=== PATIENT | female | born 1950 | race Caucasian/White ===

== ENCOUNTER 2018-09-01 12:26 | Day surgery (SDC) | payer MEDICARE, OTHER, SELFPAY ==
[2018-09-01 12:39] VITALS: BP 134/84; PULSE 66; RESP 16; TEMP 36.7; O2SAT 100
[2018-09-01 12:47] VITALS: BP 134/84; PULSE 66; RESP 16; TEMP 36.7; O2SAT 100
[2018-09-01] MEDS: Lactated Ringers 1,000 ML 30 ML IV (13:00)
--- NOTE | 2018-09-01 14:09 | W.COLOREPORT ---
Date of service: 09/01/18 Time of Service: 14:09 Colonoscopy Report Date of procedure: 09/01/18 Pre-op diagnosis general: Colorectal cancer screening Post-op diagnosis procedure note: other (Normal colon to the cecum) Procedure: Colonoscopy to cecum Surgeon: Narendra Stephens Anesthesia proc note operative: MAC (Aracely Cota CRNA; ASA 2 Mallampati class II) Estimated blood loss (mL): 0 Pathology: none sent Complications: None Disposition: same day Indications: 68-year-old woman presenting for colorectal cancer screening. She has been asymptomatic since her last colonoscopy in 2007. She has a family history of colorectal cancer in paternal grandmother and grandfather. The colonoscopy procedure is been reviewed with her, and the risks discussed. All her questions been answered to her satisfaction. Consents been obtained to proceed with colonoscopy. Please Prep: Miralax/Dulcolax (Prep quality excellent) Procedure Start Time: 13:47 Procedure End Time: 14:07 Retraction Time: 10 Findings: In examining the colon from cecum to anus, no abnormalities were noted. Procedure Description: The patient was seen in the day surgery waiting area. Her identification was confirmed, and procedure checked. She was then brought to the procedure room. Monitoring for telemetry, blood pressure, oxygen saturation, and end tidal CO2 monitoring were applied. An appropriate time out was performed to confirm, identification, allergies, medication, procedure, was performed. Sedation was titrated for affect by the FACILITIES MAINTENANCE TECHNICIAN; Once adequate sedation was achieved, I performed a inspection of the external perineum, and a digitial rectal examination. No significant external abnormalities were noted. On digital rectal examination, there was no blood, no masses, good rectal tone. I advanced the colonoscope from the anus to the cecum under direct visualization. The cecum was identified by the ileal-cecal valve, and the appendiceal orifice. The scope was then withdrawn in circumferential manner from the cecum to the rectum. No abnormalites were noted in the colon. The scope was then withdrawn into the rectum, and retroflexed. No abnormalities were noted of the rectum or anorectal junction. The scope was then withdrawn, terminating the procedure. There were no complications during the procedure, and the patient tolerated the procedure well. She was returned to the day surgery recovery area in good condition. Plan: Will continue with routine screening for colorectal cancer according to current consensus guidelines, which is currently 10 years.
--- NOTE | 2018-09-01 14:16 | W.PM.DSUDISC ---
Discharge Plan Disposition Patient Disposition: HOME Condition: Good Discharge Details Reason For Visit: Colorectal cancer screening Attending Provider: Narendra Stephens Primary Care Provider: Kyra Redmond Home Meds and New Rx's Prescriptions: Continue multivitamin [Daily Multi-Vitamin] 1 EACH tablet 1 ea PO DAILY RF: 0 trazodone 50 MG tablet 50 mg PO DAILY Qty: 90 RF: 3 conjugated estrogens [Premarin] 30 GM cream 0.5 gm VG DAILY Qty: 3 RF: 3 fish,bora,flax oils-om3,6,9no1 [[place] 3-6-9 Complex] 400 MG capsule 400 mg PO DAILY RF: 0 glycine 1,000 2,000 mg PO HS RF: 0 levothyroxine 112 MCG tablet 112 mcg PO DAILY Qty: 90 RF: 3 diclofenac sodium 100 GM gel 1 applic Topical BID PRNQty: 100 RF: 3 [id number]-bdgxnkrvx-qqi C-Mn 1 EACH tablet 1 tab PO DAILY RF: 0 omeprazole 20 mg Tablet,Delayed Release (Dr/Ec) 20 mg PO PRN PRNRF: 0 Discontinued bisacodyl [Dulcolax (bisacodyl)] 5 mg tablet,delayed release (DR/EC) 5 mg PO ONCE Qty: 4 RF: 0 polyethylene glycol 3350 17 gram/dose powder 255 g PO ONCE Qty: 255 RF: 0 Discharge Instructions Instructions: Colonoscopy (DC) Activity:: Activity as Tolerated Diet:: As Tolerated Discharge Orders Discharge Orders: Discharge Order (Routine); Ordered 09/01/18 Ordered By: Narendra Stephens DS: Diagnosis Discharge Diagnosis (1) Encounter for screening colonoscopy: Status: Acute Asessment and Plan: Colonoscopy performed: Colonoscopy Report Date of procedure: 09/01/18 Pre-op diagnosis general: Colorectal cancer screening Post-op diagnosis procedure note: other (Normal colon to the cecum) Procedure: Colonoscopy to cecum Surgeon: Narendra Stephens Anesthesia proc note operative: MAC (Aracely Cota CRNA; ASA 2 Mallampati class II) Estimated blood loss (mL): 0 Pathology: none sent Complications: None Disposition: same day Indications: 68-year-old woman presenting for colorectal cancer screening. She has been asymptomatic since her last colonoscopy in 2007. She has a family history of colorectal cancer in paternal grandmother and grandfather. The colonoscopy procedure is been reviewed with her, and the risks discussed. All her questions been answered to her satisfaction. Consents been obtained to proceed with colonoscopy. Please Prep: Miralax/Dulcolax (Prep quality excellent) Procedure Start Time: 13:47 Procedure End Time: 14:07 Retraction Time: 10 Findings: In examining the colon from cecum to anus, no abnormalities were noted. Procedure Description: The patient was seen in the day surgery waiting area. Her identification was confirmed, and procedure checked. She was then brought to the procedure room. Monitoring for telemetry, blood pressure, oxygen saturation, and end tidal CO2 monitoring were applied. An appropriate time out was performed to confirm, identification, allergies, medication, procedure, was performed. Sedation was titrated for affect by the WOODWORKING SHOP LABORER; Once adequate sedation was achieved, I performed a inspection of the external perineum, and a digitial rectal examination. No significant external abnormalities were noted. On digital rectal examination, there was no blood, no masses, good rectal tone. I advanced the colonoscope from the anus to the cecum under direct visualization. The cecum was identified by the ileal-cecal valve, and the appendiceal orifice. The scope was then withdrawn in circumferential manner from the cecum to the rectum. No abnormalites were noted in the colon. The scope was then withdrawn into the rectum, and retroflexed. No abnormalities were noted of the rectum or anorectal junction. The scope was then withdrawn, terminating the procedure. There were no complications during the procedure, and the patient tolerated the procedure well. She was returned to the day surgery recovery area in good condition. Plan: Will continue with routine screening for colorectal cancer according to current consensus guidelines, which is currently 10 years.
--- NOTE | 2018-09-01 14:20 | PDOC.DSDIS_ITS ---
Discharge Plan Disposition Patient Disposition: HOME Condition: Good Discharge Details Reason For Visit: Colorectal cancer screening Attending Provider: Narendra Stephens Primary Care Provider: Kyra Redmond Home Meds and New Rx's Prescriptions: Continue multivitamin [Daily Multi-Vitamin] 1 EACH tablet 1 ea PO DAILY RF: 0 trazodone 50 MG tablet 50 mg PO DAILY Qty: 90 RF: 3 conjugated estrogens [Premarin] 30 GM cream 0.5 gm VG DAILY Qty: 3 RF: 3 fish,bora,flax oils-om3,6,9no1 [[place] 3-6-9 Complex] 400 MG capsule 400 mg PO DAILY RF: 0 glycine 1,000 2,000 mg PO HS RF: 0 levothyroxine 112 MCG tablet 112 mcg PO DAILY Qty: 90 RF: 3 diclofenac sodium 100 GM gel 1 applic Topical BID PRNQty: 100 RF: 3 [id number]-kltsfpfqd-yqn C-Mn 1 EACH tablet 1 tab PO DAILY RF: 0 omeprazole 20 mg Tablet,Delayed Release (Dr/Ec) 20 mg PO PRN PRNRF: 0 Discontinued bisacodyl [Dulcolax (bisacodyl)] 5 mg tablet,delayed release (DR/EC) 5 mg PO ONCE Qty: 4 RF: 0 polyethylene glycol 3350 17 gram/dose powder 255 g PO ONCE Qty: 255 RF: 0 Discharge Instructions Instructions: Colonoscopy (DC) Activity:: Activity as Tolerated Diet:: As Tolerated Discharge Orders Discharge Orders: Discharge Order (Routine); Ordered 09/01/18 Ordered By: Narendra Stephens DS: Diagnosis Discharge Diagnosis (1) Encounter for screening colonoscopy: Status: Acute Asessment and Plan: Colonoscopy performed: Colonoscopy Report Date of procedure: 09/01/18 Pre-op diagnosis general: Colorectal cancer screening Post-op diagnosis procedure note: other (Normal colon to the cecum) Procedure: Colonoscopy to cecum Surgeon: Narendra Stephens Anesthesia proc note operative: MAC (Aracely Cota CRNA; ASA 2 Mallampati class II) Estimated blood loss (mL): 0 Pathology: none sent Complications: None Disposition: same day Indications: 68-year-old woman presenting for colorectal cancer screening. She has been asymptomatic since her last colonoscopy in 2007. She has a family history of colorectal cancer in paternal grandmother and grandfather. The colonoscopy procedure is been reviewed with her, and the risks discussed. All her questions been answered to her satisfaction. Consents been obtained to proceed with colonoscopy. Please Prep: Miralax/Dulcolax (Prep quality excellent) Procedure Start Time: 13:47 Procedure End Time: 14:07 Retraction Time: 10 Findings: In examining the colon from cecum to anus, no abnormalities were noted. Procedure Description: The patient was seen in the day surgery waiting area. Her identification was confirmed, and procedure checked. She was then brought to the procedure room. Monitoring for telemetry, blood pressure, oxygen saturation, and end tidal CO2 monitoring were applied. An appropriate time out was performed to confirm, identification, allergies, medication, procedure, was performed. Sedation was titrated for affect by the TRADER FIXED INCOME; Once adequate sedation was achieved, I performed a inspection of the external perineum, and a digitial rectal examination. No significant external abnormalities were noted. On digital rectal examination, there was no blood, no masses, good rectal tone. I advanced the colonoscope from the anus to the cecum under direct visualization. The cecum was identified by the ileal-cecal valve, and the appendiceal orifice. The scope was then withdrawn in circumferential manner from the cecum to the rectum. No abnormalites were noted in the colon. The scope was then withdrawn into the rectum, and retroflexed. No abnormalities were noted of the rectum or anorectal junction. The scope was then withdrawn, terminating the procedure. There were no complications during the procedure, and the patient tolerated the procedure well. She was returned to the day surgery recovery area in good condition. Plan: Will continue with routine screening for colorectal cancer according to current consensus guidelines, which is currently 10 years.
[2018-09-01 14:35] VITALS: BP 136/94; PULSE 83; RESP 16; TEMP 36.9; O2SAT 99
== END 2018-09-01 15:08 | disposition home or self-care (01) ==
PROVIDERS: PCP Nurse Practitioner; Visit Provider Surgery
PROC: 0DJD8ZZ Inspection of Lower Intestinal Tract, Via Natural or Artificial Opening Endoscopic (ICD-10-PCS; CPT 45378; principal; 2018-09-01 13:30)
DX: Z12.11 Encounter for screening for malignant neoplasm of colon (principal); K21.9 Gastro-esophageal reflux disease without esophagitis
CPT/HCPCS: G0121

== ENCOUNTER 2018-09-01 16:47 | Emergency (ER) | payer MEDICARE, OTHER, SELFPAY ==
[2018-09-01 17:00] VITALS: BP 175/90; PULSE 76; RESP 16; TEMP 36.7; O2SAT 175
--- NOTE | 2018-09-01 17:04 | W.ED.GENAD ---
Discharge Plan Disposition Patient Disposition: HOME Condition: Fair Discharge Details Chief Complaint: Abd Prob Clinical Impression: Colon distention, Post-operative pain Reason For Visit: s/p colonoscopy pain Primary Care Provider: Kyra Redmond ED Provider: Carley Raya Home Meds and New Rx's Prescriptions: Continue multivitamin [Daily Multi-Vitamin] 1 EACH tablet 1 ea PO DAILY RF: 0 trazodone 50 MG tablet 50 mg PO DAILY Qty: 90 RF: 3 conjugated estrogens [Premarin] 30 GM cream 0.5 gm VG DAILY Qty: 3 RF: 3 fish,bora,flax oils-om3,6,9no1 [[place] 3-6-9 Complex] 400 MG capsule 400 mg PO DAILY RF: 0 glycine 1,000 2,000 mg PO HS RF: 0 levothyroxine 112 MCG tablet 112 mcg PO DAILY Qty: 90 RF: 3 diclofenac sodium 100 GM gel 1 applic Topical BID PRNQty: 100 RF: 3 fdofqjvcclr-mxfqajcnm-kuy C-Mn 1 EACH tablet 1 tab PO DAILY RF: 0 omeprazole 20 mg Tablet,Delayed Release (Dr/Ec) 20 mg PO PRN PRNRF: 0 Discharge Instructions Instructions: Abdominal Pain (ED) Additional Instructions: Encourage hydration. Tylenol and/or ibuprofen as needed for discomfort. Please encourage ambulation as directed by Dr. Jones. If you develop increased pain, fever/chills, vomiting, inability to stay hydrated or other new/worsening symptoms please seek care urgently once again. Please follow-up with Dr. Jones if pain is not improved over the next few days Referrals: Narendra Stephens DO [ [facility] STAFF PHYSICIAN] - Kyra Redmond NP [Primary Care Provider] - Discharge Data Discharge Date/Time-TO BE ENTERED AT DEPARTURE: 09/01/18 20:52 Medical Decision Making Patient is 68-year-old female presenting today with chief complaint of left upper quadrant abdominal pain. States the pain began a few hours ago. Patient underwent a colonoscopy this afternoon, colonoscopy was reported to be uncomplicated with no abnormalities noted. She reports that she was passing flatus while in the hospital but is not had any since being home. Has noted her abdomen to be bloated. However, a few hours after procedure, she developed moderate left upper quadrant discomfort. Patient appears uncomfortable on exam, I walk into the department she is bent forward clutching her abdomen. Abdomen is noted to be distended and tympanitic. Diminished bowel sounds. Patient has had multiple colonoscopies in the past reports she is never had discomfort like this historically. No change in urinary habits. Is not had a bowel movement since. Denies any fevers or chills. No nausea or vomiting. Has not had anything for her discomfort as of yet. Patient is declining analgesics at this time. Patient does have allergy to dye. Will obtain noncontrast CT and laboratory evaluation. I am concerned for perforation given her recent procedure as well as possible obstruction given the lack of flatus and tympanitic nature of her abdomen. Discussed this plan with the patient who is in agreement. Consult with Dr. Jones who reviewed the imaging. Advised no free air and does not appeared consistent with an obstruction. Advised likely air entrapment. Encourage mobilization of the patient. I discussed this plan with the patient to help pass flatus. However, secondary to discomfort she is not that she is able to do this at this time. He did recommend IV Tylenol and Toradol to help with discomfort which hopefully will allow the patient to mobilize in the past flatus more freely. He advised that rather than going to CT, we obtain upright x-ray. X-ray reviewed by radiologist. They note very distended colon, likely related to recent colonoscopy. No definite evidence of bowel obstruction. No free intraperitoneal air. Laboratory evaluation no significant abnormality. Have your Tylenol and Toradol, patient is feeling improved. She is ambulating by the department in a more upright fashion. He has passed a small amount of flatus while here. Encouraged hydration, she has been able to tolerate p.o. hydration while here. We discussed new/worsening symptoms and when to seek care urgently once again. I encouraged mobilization as was directed by Dr. Jones to help with a past history of flatus. Advise follow-up with Dr. Jones as needed. All of her questions and concerns were addressed and she was in agreement with this plan. [facility] General Mode of arrival: ambulatory. Date/Time Provider Initiated Documentation: 09/01/18 16:48. Limitations to Documentation: no limitations. Information obtained by: patient. History of Present Illness 68 year old F presents to the emergency department with the chief complaint of LUQ pain, described as moderate, Quality is described as other (cramping), and is localized to the abdomen. Patient reports radiation to back. Patient started experiencing this hour(s) and it has been intermittent. No relieving factors improve symptom(s), No exacerbating factors reported . Patient notes loss of appetite; denies chest pain, cough, fever/chills, nausea/vomiting, rash and shortness of breath. Patient did receive the following treatments prior to arrival, none Related Data Home Medications Medication Instructions Recorded Confirmed multivitamin [Daily Multi-Vitamin] 1 ea PO DAILY 01/25/13 09/01/18 pkmdozhzoua-dvfxnkwhx-nlp C-Mn 1 tab PO DAILY 07/27/15 09/01/18 trazodone 50 mg PO DAILY #90 tab-cap 12/09/16 09/01/18 conjugated estrogens [Premarin] 0.5 gm VG DAILY #3 tube 01/07/18 09/01/18 Glycine 2,000 mg PO HS 01/19/18 09/01/18 diclofenac sodium 1 applic TOPICAL BID PRN #100 gm 01/19/18 09/01/18 fish,bora,flax oils-om3,6,9no1 400 mg PO DAILY 01/19/18 09/01/18 [[place] 3-6-9 Complex] levothyroxine 112 mcg PO DAILY #90 tab 01/19/18 09/01/18 omeprazole 20 mg PO PRN PRN 08/30/18 09/01/18 Previous Rx's Medication Instructions Recorded conjugated estrogens [Premarin] 0.5 gm VG DAILY #3 tube 01/07/18 levothyroxine 112 mcg PO DAILY #90 tab 01/19/18 Allergies Allergy/AdvReac Type Severity Reaction Status Date / Time Penicillins Allergy Unknown rash Verified 09/01/18 17:06 Sulfa (Sulfonamide Allergy Unknown RASH Verified 09/01/18 17:06 Antibiotics) Iodinated Contrast- Oral and Allergy Unverified 09/01/18 17:08 IV Dye zolpidem tartrate AdvReac Mild Paranoia Verified 09/01/18 17:06 [From [facility]] IVP dye Allergy anaphalaxis Uncoded 09/01/18 17:06 General Stated Complaint: Abd Prob DAGOBERTO: 3 Review of Systems Constitutional Reports as per HPI, Denies chills and Denies fever(s) Cardiovascular Reports as per HPI, Denies chest pain and Denies dyspnea Respiratory Denies dyspnea Gastrointestinal Reports as per HPI Genitourinary Reports system reviewed and no additional complaints, except as docu (denies change in urinary habits) Musculoskeletal Reports as per HPI and Reports back pain Integumentary/Breasts Reports as per HPI and Denies rash PFSH Family History Mother Diabetes Essential hypertension Father No problems noted. Appendectomy section EGD w/ bx (01/03/16) Tonsillectomy and adenoidectomy wisdom tooth extraction Family History Mother Diabetes Essential hypertension Father No problems noted. Social History Smoking/Tobacco Use Status: Never alcohol intake: current alcohol intake frequency: 0-2 drinks per day Alcohol type: beer and hard liquor substance use type: does not use Surgical History Appendectomy section EGD w/ bx (01/03/16) Tonsillectomy and adenoidectomy wisdom tooth extraction Social History Smoking/Tobacco Use Status: Never alcohol intake: current alcohol intake frequency: 0-2 drinks per day Alcohol type: beer and hard liquor substance use type: does not use Exam Const General: cooperative, healthy appearing, comfortable, no acute distress and well developed Nutritional Appearance: average body habitus and well nourished Orientation: alert and awake HENNV Head: normal to inspection Mouth: moist mucous membranes Resp Effort & Inspection: normal respiratory effort, able to speak in complete sentences and no respiratory distress Auscultation: clear to auscultation bilaterally, no rales, no rhonchi and no wheezes Cardio Rate: regular rate Rhythm: regular rhythm Heart Sounds: S1 normal and S2 normal GI Inspection: no abdominal wall ecchymosis, distended and no visible herniation Palpation: soft, no hepatosplenomegaly, no guarding, no hepatosplenomegaly, no pulsatile masses, not rigid and tender in the LUQ; Varma's sign negative and with no rebound tenderness Percussion: tympanic to percussion Auscultation: hypoactive bowel sounds Back/Spine/Pelvis Back: no CVA tenderness Skin General skin exam: no rashes or lesions noted Trauma: no lacerations or abrasions Neuro General: alert and awake Cognition: normal cognition Speech: speech normal Gait: gait abnormal (patient ambulating in a bent over position, holding upper abdomen) Psych Appearance: grossly normal and well kempt Mental Status: mental status grossly normal Speech and Movement: speech and movement normal Course Vital Signs Temperature 36.7 C 09/01/18 17:00 Pulse 76 09/01/18 17:00 Respiratory Rate 16 09/01/18 17:00 Blood Pressure 175/90 H 09/01/18 17:00 Pulse Oximetry 175 H 09/01/18 17:00 Temperature 36.7 C 09/01/18 17:00 Temperature Source Temporal Artery Scan 09/01/18 17:00 Pulse 76 09/01/18 17:00 Respiratory Rate 16 09/01/18 17:00 Blood Pressure 175/90 H 09/01/18 17:00 Pulse Oximetry 175 H 09/01/18 17:00 Oxygen Delivery Method Room Air 09/01/18 17:00 Oxygen Flow Rate 0 09/01/18 17:00 Pain Level 4 09/01/18 17:00
--- NOTE | 2018-09-01 17:11 | ED.GENADUL_ITS ---
Discharge Plan Disposition Patient Disposition: HOME Condition: Fair Discharge Details Chief Complaint: Abd Prob Clinical Impression: Colon distention, Post-operative pain Reason For Visit: s/p colonoscopy pain Primary Care Provider: Kyra Redmond ED Provider: Carley Raya Home Meds and New Rx's Prescriptions: Continue multivitamin [Daily Multi-Vitamin] 1 EACH tablet 1 ea PO DAILY RF: 0 trazodone 50 MG tablet 50 mg PO DAILY Qty: 90 RF: 3 conjugated estrogens [Premarin] 30 GM cream 0.5 gm VG DAILY Qty: 3 RF: 3 fish,bora,flax oils-om3,6,9no1 [Seneca 3-6-9 Complex] 400 MG capsule 400 mg PO DAILY RF: 0 glycine 1,000 2,000 mg PO HS RF: 0 levothyroxine 112 MCG tablet 112 mcg PO DAILY Qty: 90 RF: 3 diclofenac sodium 100 GM gel 1 applic Topical BID PRNQty: 100 RF: 3 rwknpjclhlk-szqzpqhcm-pyi C-Mn 1 EACH tablet 1 tab PO DAILY RF: 0 omeprazole 20 mg Tablet,Delayed Release (Dr/Ec) 20 mg PO PRN PRNRF: 0 Discharge Instructions Instructions: Abdominal Pain (ED) Additional Instructions: Encourage hydration. Tylenol and/or ibuprofen as needed for discomfort. Please encourage ambulation as directed by Dr. Jones. If you develop increased pain, fever/chills, vomiting, inability to stay hydrated or other new/worsening symptoms please seek care urgently once again. Please follow-up with Dr. Jones if pain is not improved over the next few days Referrals: Narendra Stephens DO [ [facility] STAFF PHYSICIAN] - Kyra Redmond NP [Primary Care Provider] - Discharge Data Discharge Date/Time-TO BE ENTERED AT DEPARTURE: 09/01/18 20:52 Medical Decision Making Patient is 68-year-old female presenting today with chief complaint of left upper quadrant abdominal pain. States the pain began a few hours ago. Patient underwent a colonoscopy this afternoon, colonoscopy was reported to be uncomplicated with no abnormalities noted. She reports that she was passing flatus while in the hospital but is not had any since being home. Has noted her abdomen to be bloated. However, a few hours after procedure, she developed moderate left upper quadrant discomfort. Patient appears uncomfortable on exam , I walk into the department she is bent forward clutching her abdomen. Abdomen is noted to be distended and tympanitic. Diminished bowel sounds. Patient has had multiple colonoscopies in the past reports she is never had discomfort like this historically. No change in urinary habits. Is not had a bowel movement since. Denies any fevers or chills. No nausea or vomiting. Has not had anything for her discomfort as of yet. Patient is declining analgesics at this time. Patient does have allergy to dye. Will obtain noncontrast CT and laboratory evaluation. I am concerned for perforation given her recent procedure as well as possible obstruction given the lack of flatus and tympanitic nature of her abdomen. Discussed this plan with the patient who is in agreement. Consult with Dr. Jones who reviewed the imaging. Advised no free air and does not appeared consistent with an obstruction. Advised likely air entrapment. Encourage mobilization of the patient. I discussed this plan with the patient to help pass flatus. However, secondary to discomfort she is not that she is able to do this at this time. He did recommend IV Tylenol and Toradol to help with discomfort which hopefully will allow the patient to mobilize in the past flatus more freely. He advised that rather than going to CT, we obtain upright x-ray. X-ray reviewed by radiologist. They note very distended colon, likely related to recent colonoscopy. No definite evidence of bowel obstruction. No free intraperitoneal air. Laboratory evaluation no significant abnormality. Have your Tylenol and Toradol, patient is feeling improved. She is ambulating by the department in a more upright fashion. He has passed a small amount of flatus while here. Encouraged hydration, she has been able to tolerate p.o. hydration while here. We discussed new/worsening symptoms and when to seek care urgently once again. I encouraged mobilization as was directed by Dr. Jones to help with a past history of flatus. Advise follow-up with Dr. Jones as needed. All of her questions and concerns were addressed and she was in agreement with this plan. [facility] General Mode of arrival: ambulatory . Date/Time Provider Initiated Documentation: 09/01/18 16:48 . Limitations to Documentation: no limitations . Information obtained by: patient . History of Present Illness 68 year old F presents to the emergency department with the chief complaint of LUQ pain, described as moderate, Quality is described as other (cramping), and is localized to the abdomen. Patient reports radiation to back. Patient started experiencing this hour(s) and it has been intermittent. No relieving factors improve symptom(s), No exacerbating factors reported . Patient notes loss of appetite; denies chest pain, cough, fever/chills, nausea/ vomiting, rash and shortness of breath. Patient did receive the following treatments prior to arrival, none Related Data Home Medications Medication Instructions Recorded Confirmed multivitamin [Daily Multi-Vitamin] 1 ea PO DAILY 01/25/13 09/01/18 icdxvbksnce-hcerfvnss-fvi C-Mn 1 tab PO DAILY 07/27/15 09/01/18 trazodone 50 mg PO DAILY #90 tab-cap 12/09/16 09/01/18 conjugated estrogens [Premarin] 0.5 gm VG DAILY #3 tube 01/07/18 09/01/18 Glycine 2,000 mg PO HS 01/19/18 09/01/18 diclofenac sodium 1 applic TOPICAL BID PRN #100 gm 01/19/18 09/01/18 fish,bora,flax oils-om3,6,9no1 400 mg PO DAILY 01/19/18 09/01/18 [Seneca 3-6-9 Complex] levothyroxine 112 mcg PO DAILY #90 tab 01/19/18 09/01/18 omeprazole 20 mg PO PRN PRN 08/30/18 09/01/18 Previous Rx's Medication Instructions Recorded conjugated estrogens [Premarin] 0.5 gm VG DAILY #3 tube 01/07/18 levothyroxine 112 mcg PO DAILY #90 tab 01/19/18 Allergies Allergy/AdvReac Type Severity Reaction Status Date / Time Penicillins Allergy Unknown rash Verified 09/01/18 17:06 Sulfa (Sulfonamide Allergy Unknown RASH Verified 09/01/18 17:06 Antibiotics) Iodinated Contrast- Oral and Allergy Unverified 09/01/18 17:08 IV Dye zolpidem tartrate AdvReac Mild Paranoia Verified 09/01/18 17:06 [From [facility]] IVP dye Allergy anaphalaxis Uncoded 09/01/18 17:06 General Stated Complaint: Abd Prob DAGOBERTO: 3 Review of Systems Constitutional Reports as per HPI, Denies chills and Denies fever(s) Cardiovascular Reports as per HPI, Denies chest pain and Denies dyspnea Respiratory Denies dyspnea Gastrointestinal Reports as per HPI Genitourinary Reports system reviewed and no additional complaints, except as docu (denies change in urinary habits) Musculoskeletal Reports as per HPI and Reports back pain Integumentary/Breasts Reports as per HPI and Denies rash PFSH Family History Mother Diabetes Essential hypertension Father No problems noted. Appendectomy section EGD w/ bx (01/03/16) Tonsillectomy and adenoidectomy wisdom tooth extraction Family History Mother Diabetes Essential hypertension Father No problems noted. Social History Smoking/Tobacco Use Status: Never alcohol intake: current alcohol intake frequency: 0-2 drinks per day Alcohol type: beer and hard liquor substance use type: does not use Surgical History Appendectomy section EGD w/ bx (01/03/16) Tonsillectomy and adenoidectomy wisdom tooth extraction Social History Smoking/Tobacco Use Status: Never alcohol intake: current alcohol intake frequency: 0-2 drinks per day Alcohol type: beer and hard liquor substance use type: does not use Exam Const General: cooperative, healthy appearing, comfortable, no acute distress and well developed Nutritional Appearance: average body habitus and well nourished Orientation: alert and awake HENNM Head: normal to inspection Mouth: moist mucous membranes Resp Effort & Inspection: normal respiratory effort, able to speak in complete sentences and no respiratory distress Auscultation: clear to auscultation bilaterally, no rales, no rhonchi and no wheezes Cardio Rate: regular rate Rhythm: regular rhythm Heart Sounds: S1 normal and S2 normal GI Inspection: no abdominal wall ecchymosis, distended and no visible herniation Palpation: soft, no hepatosplenomegaly, no guarding, no hepatosplenomegaly, no pulsatile masses, not rigid and tender in the LUQ; Varma's sign negative and with no rebound tenderness Percussion: tympanic to percussion Auscultation: hypoactive bowel sounds Back/Spine/Pelvis Back: no CVA tenderness Skin General skin exam: no rashes or lesions noted Trauma: no lacerations or abrasions Neuro General: alert and awake Cognition: normal cognition Speech: speech normal Gait: gait abnormal (patient ambulating in a bent over position, holding upper abdomen) Psych Appearance: grossly normal and well kempt Mental Status: mental status grossly normal Speech and Movement: speech and movement normal Course Vital Signs Temperature 36.7 C 09/01/18 17:00 Pulse 76 09/01/18 17:00 Respiratory Rate 16 09/01/18 17:00 Blood Pressure 175/90 H 09/01/18 17:00 Pulse Oximetry 175 H 09/01/18 17:00 Temperature 36.7 C 09/01/18 17:00 Temperature Source Temporal Artery Scan 09/01/18 17:00 Pulse 76 09/01/18 17:00 Respiratory Rate 16 09/01/18 17:00 Blood Pressure 175/90 H 09/01/18 17:00 Pulse Oximetry 175 H 09/01/18 17:00 Oxygen Delivery Method Room Air 09/01/18 17:00 Oxygen Flow Rate 0 09/01/18 17:00 Pain Level 4 09/01/18 17:00
[2018-09-01] MEDS: Lactated Ringers 1,000 ML 125 ML IV (17:15)
--- NOTE | 2018-09-01 17:19 | DI.RAD_ITS ---
SYMPTOM/DIAGNOSIS: ABDOMINAL PAIN AFTER COLONOSCOPY FLAT AND UPRIGHT VIEWS OF ABDOMEN: The visualized portions of the lung bases are clear. No free air is seen beneath the diaphragm. The colon is distended with air related to recent colonoscopy. The amount of colonic distension could obscure smaller air bubbles. Degenerative changes are seen in the spine. There is no evidence of organomegaly. IMPRESSION: Colonic distension related to recent colonoscopy. No gross evidence of perforation.
[2018-09-01 17:20] LABS: Absolute Basophil Count 0.04 k/cumm (0.0-0.2); Absolute Eosinophil Count 0.13 k/cumm (0.0-0.7); Absolute Lymphocyte Count 1.47 k/cumm (1.2-3.4); Absolute Monocyte Count 0.53 k/cumm (0.11-0.7); Absolute Neutrophil Count 3.37 k/cumm (1.2-6.7); Basophils % 0.7; Eosinophils % 2.3; HCT 42.6 % (36.0-46.0); HGB 14.5 g/dL (12.0-15.5); Lymphocytes % 26.5; Mean Corpuscular Hemoglobin 29.5 pg (27.0-33.0); Mean Corpuscular Volume 86.6 fL (80-95); Mean Platelet Volume 8.9 fL (8.0-11.0); Monocytes % 9.6; Neutrophils % 60.9; Platelet Count 264 x1000/uL (130-400); RBC 4.92 m/cumm (4.00-5.20); White Blood Cell Count 5.54 k/cumm (4.4-10.8)
[2018-09-01 17:29] LABS: Bilirubin Negative (Negative); Blood Negative (Negative); Clarity Clear; Glucose Negative (Negative); Ketones Negative (Negative); Leukocyte Esterase Negative (Negative); Nitrite Negative (Negative); Specific Gravity 1.015 (1.005-1.025); Urobilinogen 0.2 EU/dL (Up TO 0.2); pH 6.5 (5-8)
[2018-09-01 17:43] LABS: ALT 29 U/L (12-78); AST 16 U/L (15-37); Albumin 3.7 g/dL (3.4-5.0); Alkaline Phosphatase 73 U/L (46-116); Anion Gap 5.8 mmol/L (3-11); BUN 10 mg/dL (7-18); Bilirubin, Total 0.6 mg/dL (0.2-1.0); CO2 30.2 mmol/L (21.0-32.0); Calcium 9.1 mg/dL (8.5-10.1); Chloride 104 mmol/L (98-107); Glucose 102 mg/dL (70-100); Lipase 123 U/L (73-393); Magnesium 1.7 mg/dL (1.8-2.4); Potassium 3.6 mmol/L (3.5-5.1); Sodium 140 mmol/L (136-145); Total Protein 6.6 g/dL (6.4-8.2); Troponin I < 0.02 ng/mL (0.00-0.06)
--- NOTE | 2018-09-01 18:02 | DI.VRAD_ITS ---
EXAM: XR Abdomen, 2 Views EXAM DATE/TIME: 09/01/2018 5:20 PM CLINICAL HISTORY: 68 years old, female; Pain; Abdominal pain; Localized; Left upper quadrant (luq); Patient HX: Abdominal pain luq after colonoscopy. TECHNIQUE: Frontal view of the abdomen/pelvis with upright view of the abdomen. COMPARISON: No relevant prior studies available. FINDINGS: Gastrointestinal tract: Air distended colon, likely related to recent colonoscopy. No definite evidence for bowel obstruction. Intraperitoneal space: No free intraperitoneal air. Bones/joints: Unremarkable for age. IMPRESSION: 1. Air distended colon, likely related to recent colonoscopy. No definite evidence for bowel obstruction. 2. No free intraperitoneal air. Dictated and Authenticated by: Diego Cabrera MD. Ordering:DANIELLA HOYOS MD
[2018-09-01] MEDS: Ketorolac 15 MG/ML VIAL IVP (18:45)
[2018-09-01] MEDS: ACETAMINOPHEN 1,000 MG/100 ML BTL 400 MG IVPB (18:50)
== END 2018-09-01 20:52 | disposition home or self-care (01) ==
LOC: ER 20:50
PROVIDERS: Emergency Provider Physician Assistant; PCP Nurse Practitioner
DX: K63.89 Other specified diseases of intestine (principal); R10.12 Left upper quadrant pain; G89.18 Other acute postprocedural pain; Y84.8 Other medical procedures as the cause of abnormal reaction of the patient, or of later complication, without mention of misadventure at the time of the procedure; Z12.11 Encounter for screening for malignant neoplasm of colon; K21.9 Gastro-esophageal reflux disease without esophagitis
CPT/HCPCS: 36415; 80053; 83690; 96365; 96375; 99284; G0121; 74019; 81003; 83735; 84484; 85025; J0131; J1885

== ENCOUNTER 2018-12-07 18:52 | Outpatient (REF) | payer MEDICARE, OTHER, SELFPAY | END 2018-12-07 19:12 | LOC: LBN 18:52 | PROVIDERS: PCP Nurse Practitioner; Visit Provider Nurse Practitioner | DX: R30.0 Dysuria (principal) | CPT/HCPCS: 87077; 87086; 87186 ==

== ENCOUNTER 2019-03-01 13:33 | Outpatient (CLI) | payer MEDICARE, OTHER, SELFPAY ==
[2019-03-01 15:51] LABS: TSH (W/Ref FT4) 0.95 uIU/mL (0.358-3.74)
== END 2019-03-01 13:53 ==
PROVIDERS: PCP Nurse Practitioner; Visit Provider Nurse Practitioner
DX: E03.9 Hypothyroidism, unspecified (principal)
CPT/HCPCS: 36415; 84443

== ENCOUNTER 2019-11-28 09:51 | Outpatient (CLI) | payer OTHER, SELFPAY ==
[2019-11-28 10:21] LABS: HCT 44.8 % (36.0-46.0); HGB 15.1 g/dL (12.0-15.5); Mean Corp. HGB Concentration 33.7 g/dL (32.0-36.0); Mean Corpuscular Hemoglobin 29.2 pg (27.0-33.0); Mean Corpuscular Volume 86.5 fL (80-95); Mean Platelet Volume 9.1 fL (8.0-11.0); Platelet Count 323 x1000/uL (130-400); RBC 5.18 m/cumm (4.00-5.20); White Blood Cell Count 4.62 k/cumm (4.4-10.8)
[2019-11-28 11:41] LABS: ALT 26 U/L (14-59); AST 16 U/L (15-37); Albumin 4.1 g/dL (3.4-5.0); Alkaline Phosphatase 82 U/L (46-116); Anion Gap 7.8 mmol/L (3-11); BUN 12 mg/dL (7-18); Bilirubin, Total 0.4 mg/dL (0.2-1.0); CO2 31.2 mmol/L (21.0-32.0); CREATININE 0.83 mg/dL (0.55-1.02); Calcium 9.4 mg/dL (8.5-10.1); Chloride 104 mmol/L (98-107); Glucose 106 mg/dL (74-106); Potassium 4.6 mmol/L (3.5-5.1); Sodium 143 mmol/L (136-145); TSH (W/Ref FT4) 1.11 uIU/mL (0.36-3.74); Total Protein 6.9 g/dL (6.4-8.2); Vitamin B12 823 pg/mL (193-986)
[2019-11-29 11:50] LABS: Syphilis Serology (RPR) Negative (Negative)
== END 2019-11-28 10:11 ==
PROVIDERS: PCP Nurse Practitioner; Visit Provider Nurse Practitioner
DX: I10 Essential (primary) hypertension (principal); R07.9 Chest pain, unspecified; E03.9 Hypothyroidism, unspecified; F51.01 Primary insomnia; R47.89 Other speech disturbances
CPT/HCPCS: 36415; 80053; 85027; 82607; 84443; 86592

== ENCOUNTER 2019-12-09 02:12 | Outpatient (CLI) | payer OTHER, SELFPAY ==
--- NOTE | 2019-12-09 07:46 | DI.MRI_ITS ---
EXAM: MR BRAIN WO CLINICAL HISTORY: word finding difficulty, poor memory,r47.89,r41.3 TECHNIQUE: Multiplanar multisequence MRI of the brain was performed. COMPARISON: No exams were available for comparison FINDINGS: VENTRICLES AND EXTRA AXIAL SPACES: Normal in size and morphology for the patient's age. MIDLINE SHIFT: None. CEREBRAL PARENCHYMA: No focus of restricted diffusion to suggest acute infarct. No space-occupying le cristiane identified. HEMORRHAGE: None. BRAINSTEM/CEREBELLUM: Normal. CALVARIUM: Normal. VISUALIZED PARANASAL SINUSES/MASTOIDS:Clear. [place]: Normal flow void. PITUITARY GLAND: Unremarkable. OTHER FINDINGS: None. IMPRESSION: Unremarkable MRI of the brain. DATA REPOSITORY:
== END 2019-12-09 02:32 ==
PROVIDERS: PCP Nurse Practitioner; Visit Provider Nurse Practitioner
DX: R47.89 Other speech disturbances (principal); R41.3 Other amnesia
CPT/HCPCS: 70551

== ENCOUNTER 2020-08-03 03:13 | Outpatient (CLI) | payer OTHER, SELFPAY ==
[2020-08-07 19:04] LABS: Patient Race White; SARS-CoV-2 RNA Undetected (Undetected); SARS-CoV-2 Specimen Source Nasal
== END 2020-08-03 03:33 ==
PROVIDERS: PCP Nurse Practitioner; Visit Provider Nurse Practitioner Family
DX: Z11.59 Encounter for screening for other viral diseases (principal)
CPT/HCPCS: U0003

== ENCOUNTER 2021-02-04 03:19 | Outpatient (CLI) | payer OTHER, SELFPAY ==
--- NOTE | 2021-02-04 07:00 | DI.MAMMO_ITS ---
Exam(s) MAMMO SCREENING EXAM: MAMMO SCREENING CLINICAL HISTORY: screening,Z12.39. TECHNIQUE: Bilateral full field digital CC and MLO mammographic images were obtained with 3D tomosyn thesis and utilizing computer aided detection (CAD). COMPARISON: Prior mammograms dating back to 2012, the most recent being July 2017. FINDINGS: There are no CAD designations. There are no new spiculated masses nor malignant appearing microcalcification groups. There is no significant architectural distortion nor skin thickening-retraction. IMPRESSION: No radiographic evidence of malignancy. BI-RADS Category 1 - Negative Breast Density - Category B - Scattered areas of fibroglandular density Breast density Category C or D implies that the patient has dense breast tissue. Dense breast tissue can make it harder to find cancer on a mammogram. Dense breast tissue is also associated with an incr eased risk of breast cancer. This information about the result of the mammogram report was provided to the patient to raise their awareness. Use this report when you speak with the patient about their risks for breast cancer, which includes their family history. At that time, you may recommend additional screening tests (Ultrasoun d or MRI) as these tests may add significant information. A negative radiographic report should not delay biopsy if a dominant or clinically suspicious mass is present. Up to ten percent of cancers are not identified on mammography. A negative report may reinforce clinical impression. Adenosis and dense breasts may obscure an underlying neoplasm. False positive reports average 6 to 10%. Patient will receive a letter notifying them of these results.
[2021-02-04 08:28] LABS: HCT 41.3 % (36.0-46.0); HGB 13.7 g/dL (11.2-15.7); MCH 29.7 pg (27.0-33.0); MCHC 33.2 % (32.0-36.0); MCV 89.4 fL (80-95); MPV 8.7 fL (8.0-11.0); Platelet Count 261 10^3/uL (130-400); RBC 4.62 10^6/uL (3.93-5.22); RDW-SD 42.8 fL; WBC 4.74 10^3/uL (4.4-10.8)
[2021-02-04 09:25] LABS: ALT 27 U/L (14-59); AST 15 U/L (15-37); Albumin 3.8 g/dL (3.4-5.0); Alkaline Phosphatase 81 U/L (46-116); Anion Gap 8.1 mmol/L (3-11); BUN 16 mg/dL (7-18); Bilirubin, Total 0.7 mg/dL (0.2-1.0); CO2 28.9 mmol/L (21.0-32.0); CREATININE 0.9 mg/dL (0.55-1.02); Calculated LDL 106 mg/dL (<100); Chloride 106 mmol/L (98-107); Cholesterol 196 mg/dL (<200); Glucose 107 mg/dL (74-106); HDL Cholesterol 79 mg/dL (40-60); Potassium 4.3 mmol/L (3.5-5.1); Sodium 143 mmol/L (136-145); TSH (W/Ref FT4) 0.46 uIU/mL (0.36-3.74); Total Protein 6.5 g/dL (6.4-8.2); Triglyceride 59 mg/dL (<150)
== END 2021-02-04 03:20 | disposition home or self-care (01) ==
LOC: LBO 03:20
PROVIDERS: PCP Nurse Practitioner; Visit Provider Nurse Practitioner
DX: Z12.31 Encounter for screening mammogram for malignant neoplasm of breast (principal); E03.9 Hypothyroidism, unspecified; I10 Essential (primary) hypertension
CPT/HCPCS: 36415; 77063; 77067; 80053; 80061; 85027; 84443

== ENCOUNTER 2021-04-17 03:07 | Outpatient (CLI) | payer OTHER, MEDICARE, SELFPAY ==
[2021-04-17 11:53] LABS: TSH (W/Ref FT4) 0.54 uIU/mL (0.36-3.74); Vitamin B12 821 pg/mL (193-986)
[2021-04-18 05:32] LABS: Vitamin D 25 Total 48.8 ng/mL (30-100)
[2021-04-18 10:20] LABS: Lyme Ab w Rflx to Lyme Confirm Negative (Negative)
[2021-04-19 17:38] LABS: Anaplasma phagocytophilum Negative (Negative); B. miyamotoi PCR Negative (Negative); Babesia divergens/MO-1 Negative (Negative); Babesia duncani Negative (Negative); Babesia microti Negative (Negative); Ehrlichia chaffeensis Negative (Negative); Ehrlichia ewingii/canis Negative (Negative); Ehrlichia muris eauclairensis Negative (Negative)
== END 2021-04-17 03:08 | disposition home or self-care (01) ==
LOC: LBO 03:07
PROVIDERS: PCP Nurse Practitioner; Visit Provider Nurse Practitioner
DX: I10 Essential (primary) hypertension (principal); R47.1 Dysarthria and anarthria; R47.89 Other speech disturbances; R26.89 Other abnormalities of gait and mobility; E03.9 Hypothyroidism, unspecified; E55.9 Vitamin D deficiency, unspecified; G25.0 Essential tremor
CPT/HCPCS: 36415; 82306; 87798; 82607; 84443; 86618

== ENCOUNTER 2022-01-30 22:07 | Outpatient (REF) | payer MEDICARE, SELFPAY ==
[2022-01-30 22:30] LABS: Lab Add On Test DONE
== END 2022-01-30 22:08 | disposition home or self-care (01) ==
LOC: LBN 22:07
PROVIDERS: PCP Student in an Organized Health Care Education/Training Program; Visit Provider Student in an Organized Health Care Education/Training Program
DX: R19.7 Diarrhea, unspecified (principal)
CPT/HCPCS: 87329; 87177

== ENCOUNTER 2022-03-10 03:12 | Outpatient (CLI) | payer MEDICARE, SELFPAY ==
[2022-03-10 12:30] LABS: Source Nasal/Nares
[2022-03-10 16:19] LABS: COVID-19 PCR Negative (Negative)
== END 2022-03-10 03:13 | disposition home or self-care (01) ==
PROVIDERS: PCP Student in an Organized Health Care Education/Training Program; Visit Provider Speech-Language Pathologist
DX: Z20.822 Contact with and (suspected) exposure to COVID-19 (principal); Z01.818 Encounter for other preprocedural examination
CPT/HCPCS: 87635; U0005

== ENCOUNTER → 2022-03-11 01:47 | Outpatient (CLI) | payer MEDICARE, SELFPAY ==
--- NOTE | 2022-03-11 10:30 | ST.MBS ---
Date of Service Date of service: 03/11/22 Time of Service: 10:52 Modified Barium Swallow Study Findings: Videofluoroscopic Swallowing Evaluation / Modified Barium Swallow Study (VFSE/MBSS) Speech Language Pathology Report ? Patient referred by Andra Wise MD for VFSE/MBSS given patient complaint of coughing and food sticking. SUBJECTIVE: Shania arrived on time for today's swallow study. She reports no interim updates regarding her swallowing but feels her speech has been getting worse since our last visit several weeks ago. She also shares that her neurology visit with [facility] for second opinion regarding her speech and motor symptoms is upcoming (next week). She asks if the report from today's session may be shared with them. OBJECTIVE: Videofluoroscopic Swallow Evaluation (VFSE/MBSS) was conducted in the lateral projection by Speech-Language Pathologist, in collaboration with Radiologist, to evaluate oropharyngeal swallow function. Anatomic view under fluoroscopy: WFL ? PO barium contrast trials: Oral barium water soluble contrast was administered as follows: IDDSI Level 0 Varibar thin liquid (40% w/v) IDDSI Level 2 Varibar nectar thick/mildly thick liquid (40% w/v) IDDSI Level 4 Varibar pudding/pureed/extremely thick (40% w/v) IDDSI Level 7 Regular Solid: 1/2 trish cracker coated in 3 mL Varibar pudding; 13 mm barium tablet ? PHYSIOLOGIC FINDINGS Oral Phase 1 Lip Closure: 0-No labial escape 2 Tongue Control: 0- Cohesive bolus between tongue to palatal seal 3 Bolus Preparation/Mastication: 0- Timely and efficient chewing/mashing 4 Bolus Transport/Lingual Motion: 2- Slowed tongue motion; 2 or less AP movements 5 Oral residue: 1- Trace residue lining oral structures Location: tongue 6 Initiation of pharyngeal swallow:? 2- Bolus head at posterior laryngeal surface of epiglottis vs. 3- Bolus head in pyriform sinus Pharyngeal Phase 7 Velar Elevation: 0- No bolus between soft palate and pharyngeal wall 8 Laryngeal Elevation:? 1- Partial superior movement of thyroid cartilage with partial approximation of arytenoids to epiglottic petiole 9 Anterior Hyoid Excursion: 0- Complete anterior movement 10 Epiglottic Movement:? 0- Complete inversion (though delayed) 11 Laryngeal Vestibule Closure: 1- Incomplete; narrow column of air/contrast in laryngeal vestibule Penetration occurs prior to swallow onset, penetration of current bolus (not stasis/residue) 12 Pharyngeal Stripping Wave:? 1- Present; diminished 13 Pharyngeal Contraction: DNT; lack of AP view 14 PES/UES Opening:? 0- Complete distension and complete duration; no obstruction of flow 15 Tongue Base Retraction: 0- No contrast between tongue base and posterior pharyngeal wall 16 Pharyngeal residue:? 1- Trace residue within or on pharyngeal structures Location: Valleculae, Pyriform sinuses [place] Pharyngeal Residue Severity Rating Scale (YPRS) (Rosie et al, 2015) Vallecula Residue Severity II Trace 1-5% Trace coating of the mucosa Pyriform Sinus Residue Severity II Trace 1-5% Trace coating of the mucosa Esophageal Phase 17 Esophageal Clearance Upright Position: DNT; lack of AP view - HOWEVER, noting some mild retention in lateral view across consistencies in proximal segment of esophagus, question impact of ?osteophytes vs ?hypertone. NOTE: This study was performed for interpretation only of the oropharyngeal and pharyngoesophageal domains of swallowing. It is not intended to diagnose any other radiologic abnormalities or substitute for a formal esophagram study. ? Overall 8-Point Penetration-Aspiration Scale (PAS) (Jessicak, et al, 1996) 1 - No material enters the airway. 2 - Material enters the airway, remains above the vocal folds, and is ejected? from the airway. 3 - Material enters the airway, remains above the vocal folds, and is not? ejected from the airway. 4 - Material enters the airway, contacts the vocal folds, and is ejected from the? airway. 5 - Material enters the airway, contacts the vocal folds, and is not ejected from? the airway. 6 - Material enters the airway, passes below the vocal folds, and is ejected into? the larynx or out of the airway. 7 - Material enters the airway, passes below the vocal folds, and is not ejected? from the trachea despite effort. 8 - Material enters the airway, passes below the vocal folds, and no effort is? made to eject. ? Clinical Indicator(s) of Prandial/Postprandial Aspiration: Throat Clear (inconsistent, with penetration) - Aspiration not observed ? Trialed Compensatory Swallow Strategies & Outcome: Postures Posterior Head tilt - (successful per pt report for A/P transport) Maneuvers 3-second Preparatory Set - unsuccessful Volitional Throat Clear - successful Bolus Modifications Increased Viscosity - successful ? Dysphagia Outcome and Severity Scale (IRINA) LEVEL 7 - Full PO: normal diet - Normal in all situations LEVEL 6 - Full PO: normal diet - Within functional limits/modified independence LEVEL 5 - Full PO: modified diet and/or independence - Mild dysphagia; Distant supervision, may need 1 diet consistency restricted LEVEL 4 - Full PO: modified diet and/or independence - Mild-moderate dysphagia; Intermittent supervision/cueing, 1 or 2 consistencies restricted LEVEL 3 - Full PO: modified diet and/or independence - Moderate dysphagia; Total assist, supervision, or strategies 2 or more diet consistencies restricted LEVEL 2 - Nonoral nutrition necessary - Moderate-severe dysphagia; Maximum assistance or use of strategies with partial PO only (tolerates at least 1 consistency safely with total use of strategies) LEVEL 1 - Nonoral nutrition necessary - Severe dysphagia; NPO, unable to tolerate any PO safely ? IMPRESSIONS: Mild oral, pharyngeal, esophageal dysphagia, likely chronic; characterized primarily by penetration of thin liquids in setting of delayed/slowed A/P tongue movement and delayed pharyngeal swallow onset. Of note there is no apparent weakness or reduced ROM of structures. Penetration sx not to be improved by reduced volume of bolus, and 3 second bolus hold/preparatory set (?reduced automaticity) appears to worsen swallow function. Dysphagia presentation likely due to ?degenerative motor condition vs presbyphagia. Swallow safety is mildly impaired; swallow efficiency is mildly impaired. Patient appears to be at low risk for potential aspiration PNA, pulmonary compromise and low risk for malnutrition, low risk for dehydration. Diet modification is indicated only to reduce bolus size and reduce risk of stasis. Swallow prognosis is guarded given possible suspected neuro-degenerative causes, though patient is an excellent candidate for risk management training. Plan to follow up with patient periodically on swallow function (patient is an established patient for speech therapy secondary to Primary Progressive Apraxia of Speech dx'd by [facility] dementia specialist Dr. Issa) and pending further neurology workup. ? PLAN/RECOMMENDATIONS: Diet recommendation: IDDSI Level 6-Soft & Bite-Sized Solids 0-Thin Liquids Please see further details at www.iddsi.org Diet texture modification is per patient's preference; please adjust diet textures at patient's discretion & collaboration with care team. Risk Management: Behavioral reflux precautions, including upright position during + 90 mins after meals. Small bites, approx [id number] Small sips, approx 10 mL Alternate solids/liquids as able Control risk factors for aspiration pneumonia via (a) thorough oral hygiene & (b) maintaining physical mobility as tolerated Specialist referrals: n/a Ancillary tests: n/a Therapy: Recommend subsequent outpatient session with FOOD SERVICE DRIVER to review results of today's exam and develop treatment plan as appropriate. Goal: TBD pending patient/caregiver interview Follow-up exam: PRN and pending further neurology workup ? Thank you for allowing me to take part in this patient's care. ? Please feel free to contact me with any questions/concerns. ? Isadora Ba M.S., CCC-FOOD SERVICE DRIVER Speech Language Pathologist [phone] Coding CPT Codes MOTION FLUOROSCOPY/SWALLOW - [id number] ([id number])
--- NOTE | 2022-03-11 10:51 | DI.RAD_ITS ---
Exam(s) RF MODIFIED SPEECH BA SWALLOW TECHNIQUE: Modified barium swallow was performed in conjunction with speech pathology. CONTRAST MATERIAL: Oral barium Oral water soluble contrast was administered. COMPARISON: No exams were available for comparison FINDINGS: Prostate was provided during swallowing mechanism study performed our department in conjunction with the speech therapist. Please note this is not a formal esophagram. See procedure report dictated by the speech therapist for details. IMPRESSION: Some penetration was noted but no obvious aspiration. Total fluoroscopy time 61 seconds. Cumulative dose 4.2 secondsmGy RADIATION DOSE DELIVERED: vinny [place]= mGy
[2022-03-11] MEDS: Barium Sulfate 700 MG TAB PO (11:00)
[2022-03-11] MEDS: Barium Sulfate Oral Paste 40% W/V 230 ML TUBE 13 ML PO (11:01)
[2022-03-11] MEDS: Barium Sulfate 40% W/V 240 ML BTL 70 ML PO (11:02)
[2022-03-11] MEDS: Barium Sulfate 81% w/w for Oral Suspension 148 GM BTL 80 GM PO (11:04)
== END ==
PROVIDERS: PCP Student in an Organized Health Care Education/Training Program; Visit Provider Student in an Organized Health Care Education/Training Program
DX: R13.10 Dysphagia, unspecified (principal); R29.818 Other symptoms and signs involving the nervous system
CPT/HCPCS: 92526; 74221

== ENCOUNTER 2022-09-04 12:24 | Outpatient (CLI) | payer MEDICARE, SELFPAY ==
[2022-09-04 12:05] LABS: TSH (W/Ref FT4) 0.84 uIU/mL (0.36-3.74)
[2022-09-05 10:15] LABS: Lyme Ab w Rflx to Lyme Confirm Negative (Negative)
[2022-09-06 17:14] LABS: Anaplasma phagocytophilum Negative (Negative); B. miyamotoi PCR Negative (Negative); Babesia divergens/MO-1 Negative (Negative); Babesia duncani Negative (Negative); Babesia microti Negative (Negative); Ehrlichia chaffeensis Negative (Negative); Ehrlichia ewingii/canis Negative (Negative); Ehrlichia muris eauclairensis Negative (Negative)
== END 2022-09-04 12:25 | disposition home or self-care (01) ==
LOC: LBO 12:24
PROVIDERS: PCP Student in an Organized Health Care Education/Training Program; Visit Provider Student in an Organized Health Care Education/Training Program
DX: E03.9 Hypothyroidism, unspecified (principal); R26.89 Other abnormalities of gait and mobility; R29.818 Other symptoms and signs involving the nervous system; R53.83 Other fatigue; G31.01 Pick's disease
CPT/HCPCS: 36415; 87798; 84443; 86618

== ENCOUNTER → 2023-06-16 12:33 | Outpatient (BNVA) | payer MEDICARE, SELFPAY | PROVIDERS: PCP Student in an Organized Health Care Education/Training Program; Referring Provider Student in an Organized Health Care Education/Training Program; Visit Provider Psychiatry & Neurology Neurology | DX: G31.9 Degenerative disease of nervous system, unspecified (principal); R48.2 Apraxia; R29.818 Other symptoms and signs involving the nervous system; R13.10 Dysphagia, unspecified; G56.03 Carpal tunnel syndrome, bilateral upper limbs | CPT/HCPCS: 99205 ==

== ENCOUNTER 2023-06-22 18:49 | Outpatient (CLI) | payer MEDICARE, SELFPAY ==
[2023-06-30 12:47] LABS: Manganese, B 6.6 ng/mL (4.7-18.3)
== END 2023-06-22 18:50 | disposition home or self-care (01) ==
LOC: LBO 18:50
PROVIDERS: PCP Student in an Organized Health Care Education/Training Program; Visit Provider Psychiatry & Neurology Neurology
DX: G25.89 Other specified extrapyramidal and movement disorders (principal); R48.2 Apraxia; G20 Parkinson's disease; R26.89 Other abnormalities of gait and mobility
CPT/HCPCS: 36415; 83785

== ENCOUNTER → 2023-07-21 12:08 | Outpatient (BNVA) | payer MEDICARE, SELFPAY | PROVIDERS: PCP Student in an Organized Health Care Education/Training Program; Referring Provider Student in an Organized Health Care Education/Training Program; Visit Provider Psychiatry & Neurology Neurology | DX: G31.9 Degenerative disease of nervous system, unspecified (principal); R48.2 Apraxia; R29.818 Other symptoms and signs involving the nervous system; R13.10 Dysphagia, unspecified; G56.03 Carpal tunnel syndrome, bilateral upper limbs | CPT/HCPCS: 99214 ==

== ENCOUNTER → 2023-11-16 08:56 | Outpatient (BNVA) | payer MEDICARE, SELFPAY | PROVIDERS: PCP Student in an Organized Health Care Education/Training Program; Visit Provider Psychiatry & Neurology Neurology | DX: R48.2 Apraxia (principal); G31.9 Degenerative disease of nervous system, unspecified; R29.818 Other symptoms and signs involving the nervous system; R13.10 Dysphagia, unspecified | CPT/HCPCS: 99214 ==